=== PATIENT | female | born 1955 | race Caucasian/White ===

== ENCOUNTER 2022-05-14 18:17 | Emergency (ER) | payer OTHER, MEDICAID ==
[~2022-05-14] VITALS: Ht 167.6 cm; Wt 54.0 kg
[2022-05-14] MEDS ORDERED: ONDANSETRON HCL 4MG/2ML INJ IV STA (18:29)
[2022-05-14] MEDS ORDERED: MORPHINE SULFATE 4 MG/ML CPJ (NOT FOR IM USE) IV STA (18:29)
[2022-05-14] MEDS ORDERED: SODIUM CHLORIDE 0.9% 1,000 ML IV ONE (18:30)
[2022-05-14 21:52] LABS: HEMATOCRIT. 32.5 % (36.0-48.0); HEMOGLOBIN. 10.5 g/dL (12.0-16.0); MEAN CORPUSCULAR HEMOGLOBIN 26.7 pg (28.0-32.0); MEAN CORPUSCULAR VOLUME 82.4 fL (81.0-99.0); MEAN PLATELET VOLUME 8.3 fl (7.4-10.4); PLATELET 340 x1000/uL (130-400); RED BLOOD CELL COUNT 3.95 mill/uL (4.2-5.4); RED CELL DISTRIBUTION WIDTH 15.1 % (11.6-14.6)
[2022-05-14 22:00] LABS: CHLORIDE 100 mEq/L (98-107)
[2022-05-14 22:03] LABS: INR 1.1; PROTHROMBIN TIME 11.4 sec (9.6-11.0)
[2022-05-14] MEDS ORDERED: LEVOFLOXACIN 750MG PREMIX 150 ML IV ONE (22:30)
[2022-05-14 22:39] LABS: PLATELET ESTIMATE NORMAL
[2022-05-14] MEDS ORDERED: ONDANSETRON HCL 4MG/2ML INJ IV NR (23:00)
[2022-05-14] MEDS ORDERED: MORPHINE SULFATE 4 MG/ML CPJ (NOT FOR IM USE) IV NR (23:00)
[2022-05-15] MEDS ORDERED: INSULIN REGULAR (HUMULIN R) 300UNITS/3ML VIAL SUBCUT ONE
[2022-05-15] MEDS ORDERED: SODIUM CHLORIDE 0.9% 1,000 ML IV ONE
[2022-05-15] MEDS ORDERED: MORPHINE SULFATE 4 MG/ML CPJ (NOT FOR IM USE) IV STA (00:24)
[2022-05-15] MEDS ORDERED: ONDANSETRON HCL 4MG/2ML INJ IV STA (00:24)
[2022-05-15] MEDS ORDERED: KETOROLAC 15MG/ML VIAL IV ONE (01:45)
[2022-05-15] MEDS ORDERED: MORPHINE SULFATE 4 MG/ML CPJ (NOT FOR IM USE) IV ONE (05:00)
[2022-05-15 05:09] VITALS: BP 127/54
== END 2022-05-15 06:05 | disposition short-term general hospital (02) ==
LOC: ER 18:17 → CANBEDREQ 05-15 05:53 → ER 05-15 06:05
DX: T81.43XA Infection following a procedure, organ and space surgical site, initial encounter (principal); K65.1 Peritoneal abscess; E11.65 Type 2 diabetes mellitus with hyperglycemia; Z20.822 Contact with and (suspected) exposure to COVID-19; Z90.49 Acquired absence of other specified parts of digestive tract; Z88.0 Allergy status to penicillin; Y83.8 Other surgical procedures as the cause of abnormal reaction of the patient, or of later complication, without mention of misadventure at the time of the procedure; Y92.018 Other place in single-family (private) house as the place of occurrence of the external cause
CPT/HCPCS: 36415; 74176; 80053; 82962; 83690; 85025; 85610; 87426; 96361; 96365; 96366; 96372; 96375; 96376; 99285; C9803; J1815; J1885; J1956; J2270; J2405; J7030